=== PATIENT | male | born 1995 | race Caucasian/White ===

== ENCOUNTER 2022-01-30 11:21 | Emergency (ER) | payer SELFPAY ==
[~2022-01-30] VITALS: Ht 188 cm; Wt 79.5 kg
[2022-01-30] MEDS ORDERED: PROVENTIL HFA IN (11:42)
[2022-01-30 12:46] VITALS: BP 135/94
[2022-01-30 12:56] LABS: URINE BILIRUBIN - DIPSTICK NEGATIVE (NEGATIVE); URINE BLOOD DIPSTICK NEGATIVE (NEGATIVE); URINE COLOR YELLOW; URINE GLUCOSE - DIPSTICK NEGATIVE (NEGATIVE); URINE KETONE NEGATIVE (NEGATIVE); URINE LEUK ESTERASE NEGATIVE (NEGATIVE); URINE PROTEIN - DIPSTICK NEGATIVE (NEG-TRACE); URINE SPECIFIC GRAVITY 1.025; URINE UROBILINOGEN - DIPSTICK 0.2 E.U./dL (0.2)
[2022-01-30 12:59] LABS: URINE NITRITE - DIPSTICK NEGATIVE (Negative)
== END 2022-01-30 14:22 | disposition home or self-care (01) | DRG 728 ==
LOC: ED 11:21
PROVIDERS: Family Medicine
DX: A64 Unspecified sexually transmitted disease (principal); J45.909 Unspecified asthma, uncomplicated